=== PATIENT | female | born 1945 | race American Indian/Alaskan Native ===

== ENCOUNTER 2023-07-24 14:25 | Emergency (ER) | payer OTHER, SELFPAY ==
[2023-07-24 14:28] VITALS: BP 152/83
[2023-07-24] MEDS: VENTOLIN NEBULES 2.5 MG INH (16:11)
[2023-07-24 16:36] LABS: COVID-19 Antigen Negative (Negative)
--- NOTE | 2023-07-24 16:38 | ED.GENMED ---
History of Present Illness
General
Chief Complaint: Cough
Time Seen by Provider: 07/24/23 14:59
Travel History
Have you had any contact with someone who has COVID-19?: No
Do you have any symptoms of coronavirus? Fever > 100 degrees, chills, cough, shortness of breath, sore throat, loss of taste or smell, muscle aches, or headache?: Yes
Symptoms:: cough
History of Present Illness
History of Present Illness:
78-year-old female with history of hyperlipidemia and GERD presents to the emergency department for evaluation of persistent cough for the past 2 days. She states she has had a mild cough for the past week however this is gradually worsening over
the past 2 days. She is having difficulty breathing due to the excessive nature of the coughing. No fevers chills or night sweats.
Past History
Past History
ED Past Medical History: GERD and Hypercholesterolemia
Social History
Tobacco: Non-smoker
Living: with family
Employment: Retired
Review of Systems
Review of Systems
Allergies reviewed?: Yes
All Other Systems: ROS reviewed and negative except as documented in HPI and ROS
Phy Exam
Physical Exam
Physical Exam:
GEN: Well appearing, NAD, WDWN
HEENT: Oral mucosa moist, no scleral icterus
Cardiac: Regular rate and rhythm, no murmurs
Lung: No respiratory distress, no tachypnea, lungs clear to auscultation bilaterally
MSK: No gross deformity or injuries
Skin: Good color, no pallor or jaundice, no rashes
Neuro: AO x3, moves all extremities freely
Psych: Calm, cooperative
Course
Orders/Labs/Results
Orders:
Orders
07/24/23 16:07
Albuterol Nebs [Ventolin Nebules] 2.5 mg INH R NOW STA
07/24/23 16:08
CR Chest - 2 Views Urgent
Comment:
Reason For Exam: cough
07/24/23 16:11
COVID-19 Antigen Urgent
Source: Nasal Swab
Influenza A+B Rapid Molecular Urgent
LEIGHA Source: Nasal Swab
Specimen Description:
Vital Signs
Initial and Last Documented VS:
Initial Vital Signs
Temp Pulse Resp BP Pulse Ox
98.9 F 75 22 152/83 100
07/24/23 14:28 07/24/23 14:28 07/24/23 14:28 07/24/23 14:28 07/24/23 14:28
Last Documented Vital Signs
Temp Pulse Resp BP Pulse Ox
98.9 F 75 22 152/83 100
07/24/23 14:28 07/24/23 14:28 07/24/23 14:28 07/24/23 14:28 07/24/23 14:28
MDM/Problems Addressed
MDM/Problems Addressed:
Subtle wheezing on exam, likely bronchitis, CXR without PNA. WIll trial steroids and bronchodilators
*Critical Care Note
Total Time (30-74mins, 75-104mins- exclusive of procedures): Not Applicable
ED Attending Note
-
Portions of this chart may have been created with voice recognition software.� Occasional wrong word or��sound alike� substitutions may have occurred due to the inherent limitations of voice recognition software.
Discharge Plan
Departure
Patient Disposition: Home (Routine Discharge)
Date of Disposition: 07/24/23
Time of Disposition: 17:40
Patient with high blood pressure during this ER visit?: No
Discharge Problem:
Acute bronchitis
Instructions: Acute Bronchitis, Adult (DC)
Prescriptions:
New
methylprednisolone [Medrol (Juan)] 4 mg tablets,dose pack
See Rx Instructions .ROUTE .COMPLEX Qty: 21 0RF
Rx Instructions:
orally per package directions
albuterol sulfate [ProAir HFA] 90 mcg/actuation HFA aerosol inhaler
1 puff inhalation Q4HPRN PRN (Reason: shortness of breath) Qty: 6.7 0RF
No Action
prednisolone acetate 1 % Drops,Suspension
1 drp LEFT EYE QID Qty: 0
esomeprazole magnesium [Nexium] 40 MG capsule,delayed release(DR/EC)
40 mg PO BID
fenofibrate 54 mg Tablet
54 mg PO DAILY Qty: 0
Vancomycin
1 drp LEFT EYE BID
acetaminophen [Tylenol Extra Strength] 500 MG tablet
1,000 mg PO Q6HPRN PRN (Reason: mild pain)
famotidine [Pepcid] 40 mg Tablet
40 mg PO QPM
simethicone [Gas-X Extra Strength] 125 mg Capsule
125 mg PO QPCHS
timolol 0.5 % Drops
1 drp RIGHT EYE BID
calcium carbonate [Tums] 200 mg calcium (500 mg) Tablet,Chewable
200 mg PO BIDPRN PRN (Reason: gas pains)
acyclovir 200 mg Capsule
200 mg PO DAILY
ezetimibe-simvastatin 10-20 mg Tablet
1 tab PO HS
azelastine-fluticasone 137-50 mcg/spray [place],Non-Aerosol
1 spray INTRANASAL BIDPRN PRN (Reason: allergies)
prednisone 20 mg Tablet
40 mg PO DAILY Qty: 10 0RF
tramadol 50 mg tablet
25 mg PO Q6H PRN (Reason: pain) Qty: 20 0RF
Referrals:
NONE,* [Family Provider] -
Interventions
Interventions:
*Nursing Disposition Last Done: 07/24/23 18:01
ED- Pulmonary Assessment Last Done: 07/24/23 16:43
Discharge Date and Time
Discharge Date/Time: 07/24/23 18:01
== END 2023-07-24 18:01 | disposition home or self-care (01) ==
LOC: EMR 14:25
PROVIDERS: Physician Assistant; EMERGENCY PHYSICIAN Student in an Organized Health Care Education/Training Program
DX: J20.9 Acute bronchitis, unspecified (principal); Z11.52 Encounter for screening for COVID-19; E78.00 Pure hypercholesterolemia, unspecified; K21.9 Gastro-esophageal reflux disease without esophagitis
CPT/HCPCS: 99283; 94640; 71046; 87502; 87811

== ENCOUNTER 2023-09-11 19:33 | Emergency (ER) | payer OTHER, SELFPAY ==
[2023-09-11 19:35] VITALS: BP 197/109
[2023-09-11 19:52] VITALS: BMI 26.5
--- NOTE | 2023-09-11 19:52 | ED.GENMED ---
History of Present Illness
General
Chief Complaint: Breathing Problem
Source: patient and family
Exam Limitations: none
Time Seen by Provider: 09/11/23 19:51
Nursing documentation reviewed up to this point in time: agreed with
Travel History
Have you had any contact with someone who has COVID-19?: No
Do you have any symptoms of coronavirus? Fever > 100 degrees, chills, cough, shortness of breath, sore throat, loss of taste or smell, muscle aches, or headache?: Yes
Symptoms:: SOB, cough, wheezing
History of Present Illness
History of Present Illness:
78-year-old female with history HLD, GERD, seen here on 07/24/2023 and diagnosed with bronchitis, here with wheezing, cough. Seen here 07/23 dx bronchitis, continued wheeze and cough, saw PCP gave Prednisone x 1 week and albuterol with some
improvement and she was referred to pulmonology. She is back with significant wheezing and cough.
Past History
Past History
ED Past Medical History: GERD, Hypercholesterolemia and Other (blindness)
ED Past Surgical History: Orthopedic
Social History
Tobacco: Non-smoker
Personal:
Living: with family
Employment: Retired
Review of Systems
Review of Systems
Allergies reviewed?: Yes
All Other Systems: ROS reviewed and negative except as documented in HPI and ROS
Constitutional: Reports fatigue; Denies fever
Respiratory: Reports cough and trouble breathing
Cardiac: Denies chest pain
ABD/GI: Denies abdominal pain, nausea, vomiting or diarrhea
: Denies dysuria or difficulty voiding
Musculoskeletal: Reports no symptoms
Skin: Reports no symptoms
Phy Exam
Physical Exam
Physical Exam:
GENERAL: No acute distress. A&Ox3. Elderly and frail
CONSTITUTIONAL: Afebrile.
EYES: Blind, left eye opaque, right eye with fixed pupil
Neck: Supple
ENMT: moist mucus membranes, Pharynx nl
RESPIRATORY: Mildly labored respirations, expiratory wheezes throughout. Pulse ox 98% RA
CARDIOVASCULAR: Regular rate and rhythm, no murmurs, no rubs.
GI: Soft, nontender
MUSCULOSKELETAL: Moves with ease. Well perfused. No edema
SKIN: Warm, dry, normal
PSYCH: Depressed mood and affect. Well kept
NEUROLOGIC: Awake, alert and oriented. No focal neurological deficits
Scores
Heart Failure Risk
Heart Failure Risk Score: Not Applicable
Course
Orders/Labs/Results
Orders:
Orders
09/11/23 19:52
CXR2 [CR Chest - 2 Views ] Urgent
Comment:
Reason For Exam: sob
09/11/23 19:59
Ipratropium/Albuterol Sulfate [Duoneb] 3 ml INH R NOW STA
09/11/23 21:09
Complete Blood Count/With Diff Urgent
Comprehensive Metabolic Panel Urgent
09/11/23 22:43
Dexamethasone [Decadron] 10 mg PO NOW STA
Abnormal Lab Results
09/11/23
21:09
RBC 4.00 L 10^6/uL
(4.20-5.40)
Hct 35.8 L %
(37.0-47.0)
MCH 31.3 H pg
(27.0-31.0)
Absolute Monos (auto) 0.7 H 10^3/uL
(0.1-0.6)
Absolute Eos (auto) 0.9 H 10^3/uL
(0-0.7)
Eosinophils % 9.5 H %
(0-6)
Sodium 134 L mmol/L
(135-145)
Creatinine 0.4 L mg/dL
(0.6-1.0)
Glucose 113 H mg/dl
(70-99)
AST 51 H U/L
(14-36)
09/11/23 21:09
09/11/23 21:09
Vital Signs
Initial and Last Documented VS:
Initial Vital Signs
Temp Pulse Resp BP Pulse Ox
98.1 F 71 28 197/109 98
09/11/23 19:35 09/11/23 19:35 09/11/23 19:35 09/11/23 19:35 09/11/23 19:35
Last Documented Vital Signs
Temp Pulse Resp BP Pulse Ox
98.1 F 76 20 131/68 98
09/11/23 19:35 09/11/23 22:45 09/11/23 22:45 09/11/23 22:00 09/11/23 22:45
MDM/Problems Addressed
Differential Diagnosis Includes:
reactive airway disease: asthma, COPD,
MDM/Problems Addressed:
78-year-old female with history HLD, GERD, seen here on 07/24/2023 and diagnosed with bronchitis, here with wheezing, cough. Seen here 07/23 dx bronchitis, continued wheeze and cough, saw PCP gave Prednisone x 1 week and albuterol with some
improvement and she was referred to pulmonology. She is back with significant wheezing and cough. Much improved with duoneb x 1 and Decadron.
Afebrile
10:00 p.m.
CBC with no clinically significant abnormality
CMP with no clinically significant abnormality
After DuoNeb, breathing no longer labored, patient's lungs are completely clear, pulse ox 98% room air
Plan:
Putting her back on Prednisone and Albuterol nebs. She has appt with Dr. Willard but not until September. Texted Dr. Willard asking to have someone from office call pt and move appt up. Did not hear back.
Instructed son to call office tomorrow
Rx for prednisone and albuterol for nebulizations sent to patient's pharmacy
*Critical Care Note
Total Time (30-74mins, 75-104mins- exclusive of procedures): Not Applicable
ED Attending Note
-
Portions of this chart may have been created with voice recognition software.� Occasional wrong word or��sound alike� substitutions may have occurred due to the inherent limitations of voice recognition software.
Discharge Plan
Departure
Patient Disposition: Home (Routine Discharge)
Date of Disposition: 09/11/23
Time of Disposition: 23:26
Patient with high blood pressure during this ER visit?: No
Condition: Good
Discharge Problem:
RAD (reactive airway disease) with wheezing
Instructions: Asthma, Adult ED
Prescriptions:
New
albuterol sulfate 2.5 mg/0.5 mL solution for nebulization
5 mg inhalation Q6H PRN (Reason: shortness of breath or wheezing) Qty: 30 0RF
prednisone 20 mg tablet
20 mg PO BID Qty: 14 0RF
No Action
prednisolone acetate 1 % Drops,Suspension
1 drp LEFT EYE QID Qty: 0
esomeprazole magnesium [Nexium] 40 MG capsule,delayed release(DR/EC)
40 mg PO BID
fenofibrate 54 mg Tablet
54 mg PO DAILY Qty: 0
Vancomycin
1 drp LEFT EYE BID
acetaminophen [Tylenol Extra Strength] 500 MG tablet
1,000 mg PO Q6HPRN PRN (Reason: mild pain)
famotidine [Pepcid] 40 mg Tablet
40 mg PO QPM
simethicone [Gas-X Extra Strength] 125 mg Capsule
125 mg PO QPCHS
timolol 0.5 % Drops
1 drp RIGHT EYE BID
calcium carbonate [Tums] 200 mg calcium (500 mg) Tablet,Chewable
200 mg PO BIDPRN PRN (Reason: gas pains)
acyclovir 200 mg Capsule
200 mg PO DAILY
ezetimibe-simvastatin 10-20 mg Tablet
1 tab PO HS
azelastine-fluticasone 137-50 mcg/spray [place],Non-Aerosol
1 spray INTRANASAL BIDPRN PRN (Reason: allergies)
prednisone 20 mg Tablet
40 mg PO DAILY Qty: 10 0RF
tramadol 50 mg tablet
25 mg PO Q6H PRN (Reason: pain) Qty: 20 0RF
methylprednisolone [Medrol (Juan)] 4 mg tablets,dose pack
See Rx Instructions .ROUTE .COMPLEX Qty: 21 0RF
Rx Instructions:
orally per package directions
albuterol sulfate [ProAir HFA] 90 mcg/actuation HFA aerosol inhaler
1 puff inhalation Q4HPRN PRN (Reason: shortness of breath) Qty: 6.7 0RF
Referrals:
Elizabeth Willard MD [Active] - Keep scheduled appt
Isaiah Smith DO [Family Provider] -
Activity Restrictions/Additional Instructions:
As we discussed, I sent a prescription to your pharmacy for albuterol to use with your nebulizer and also for prednisone 20 mg twice a day for the next week.
I messaged Dr. Willard to have someone from his office reach out and move your appointment up if possible
If you don't hear from them tomorrow, you may call his office, inform of today's visit and ask if it can be moved up.
Otherwise return here if symptoms worsen or you seem sicker in any way.
Interventions
Interventions:
*Risk Screen - Suicide Last Done: 09/11/23 19:53
*General Assessment Last Done: 09/11/23 19:53
*Neglect/Abuse Screening Last Done: 09/11/23 19:53
ED- Fall Risk Assessment Last Done: 09/11/23 19:54
*ED COVID-19 Vaccine History Last Done: 09/11/23 19:53
*Nursing Disposition Last Done: 09/11/23 23:48
ED- Cardiac Assessment Last Done: 09/11/23 19:54
ED- Pulmonary Assessment Last Done: 09/11/23 19:54
Discharge Date and Time
Discharge Date/Time: 09/11/23 23:49
Print Language: GREEK
[2023-09-11 20:06] VITALS: BP 154/89
[2023-09-11] MEDS: DUONEB 3 ML INH (20:12)
[2023-09-11 21:07] VITALS: BP 108/83
[2023-09-11 21:14] LABS: % Basophils 1.2 % (0-2); % Eosinophils 9.5 % (0-6); % Immature Granulocytes 0.2 % (0-0.5); % Lymphocytes 28.5 % (20.5-51.1); % Monocytes 7.3 % (1.7-9.3); % Neutrophils 53.3 % (42.2-75.2); Absolute Basophils 0.1 10^3/uL (0-0.2); Absolute Eosinophils 0.9 10^3/uL (0-0.7); Absolute Lymphocytes 2.8 10^3/uL (1.2-3.4); Absolute Monocytes 0.7 10^3/uL (0.1-0.6); Absolute Neutrophils 5.2 10^3/uL (1.4-6.5); Hematocrit 35.8 % (37.0-47.0); Hemoglobin 12.5 g/dL (12.0-16.0); Mean Corp Hgb Conc. 34.9 g/dL (33.0-37.0); Mean Corpuscular Hgb 31.3 pg (27.0-31.0); Mean Corpuscular Volume 89.5 fL (81.0-99.0); Mean Platelet Volume 9.2 fL (7.4-10.4); Nucleated Red Blood Cells % 0 %; Platelet Count 349 10^3/uL (130-400); Red Cell Dist. Width 13.1 % (11.5-14.5); White Blood Cell Count 9.8 10^3/uL (4.8-10.8)
[2023-09-11 21:37] LABS: ALT (SGPT) 23 U/L (0-35); AST (SGOT) 51 U/L (14-36); Albumin 4.6 g/dl (3.5-5.0); Alkaline Phosphatase 94 U/L (38-126); Blood Urea Nitrogen 11 mg/dl (7-17); Calcium 9.9 mg/dl (8.4-10.2); Carbon Dioxide 24 mmol/L (22-30); Chloride 101 mmol/L (98-107); Estimated Creatinine Clearance 46 ml/min; Glucose 113 mg/dl (70-99); Potassium 4.6 mmol/L (3.5-5.1); Sodium 134 mmol/L (135-145); Total Bilirubin 0.5 mg/dl (0.2-1.3); Total Protein 7.7 g/dl (6.3-8.2); eGFR > 60.00
[2023-09-11 22:00] VITALS: BP 131/68
[2023-09-11] MEDS: DECADRON 10 MG PO (22:47)
== END 2023-09-11 23:49 | disposition home or self-care (01) ==
LOC: EMR 19:33
PROVIDERS: EMERGENCY PHYSICIAN Emergency Medicine; FAMILY PHYSICIAN Family Medicine
DX: J45.901 Unspecified asthma with (acute) exacerbation (principal); R06.2 Wheezing; R07.89 Other chest pain; E78.00 Pure hypercholesterolemia, unspecified; K21.9 Gastro-esophageal reflux disease without esophagitis; M81.0 Age-related osteoporosis without current pathological fracture; H40.9 Unspecified glaucoma; M48.00 Spinal stenosis, site unspecified; G62.9 Polyneuropathy, unspecified; D50.9 Iron deficiency anemia, unspecified; H54.62 Unqualified visual loss, left eye, normal vision right eye
CPT/HCPCS: 99283; 94640; 71046; 80053; 85025

== ENCOUNTER → 2025-04-06 11:37 | Outpatient (REF) | payer OTHER, SELFPAY ==
[2025-04-06 12:31] LABS: Hematocrit 36.9 % (37.0-47.0); Hemoglobin 11.7 g/dL (12.0-16.0); Mean Corp Hgb Conc. 31.7 g/dL (33.0-37.0); Mean Corpuscular Volume 93.7 fL (81.0-99.0); Nucleated Red Blood Cells % 0 %; Platelet Count 308 10^3/uL (130-400); Red Cell Dist. Width 13.3 % (11.5-14.5); Reticulocyte Count 1.0 % (0.4-2.8)
[2025-04-06 12:45] LABS: Iron 120 ug/dl (37-170)
[2025-04-06 12:56] LABS: Total Iron Binding Capacity 430 ug/dl (265-497)
[2025-04-06 13:18] LABS: TSH 0.71 uIU/ml (0.47-4.68)
[2025-04-06 13:22] LABS: Ferritin 177.0 ng/ml (11.1-264.0)
[2025-04-06 13:53] LABS: Folate > 20.0 ng/ml (2.76-20); Vitamin B12 671 pg/ml (239-931)
== END ==
LOC: REG 11:37
PROVIDERS: ATTENDING PHYSICIAN Internal Medicine Critical Care Medicine; FAMILY PHYSICIAN Family Medicine
DX: J41.8 Mixed simple and mucopurulent chronic bronchitis (principal); D64.9 Anemia, unspecified; R79.89 Other specified abnormal findings of blood chemistry
CPT/HCPCS: 71046; 82607; 82728; 82746; 83540; 83550; 84439; 84443; 85025; 85045